=== PATIENT | female | born 1970 | race Two or more races ===

== ENCOUNTER 2018-04-05 11:52 | Observation (INO) | payer BC ==
[~2018-04-05 11:52] MED LIST: DEXAMETHASONE SOD PHOSPHATE INJ 4 MG/1 ML VIAL ONE; GLYCOPYRROLATE 1 MG/5 ML SYRINGE ONE; KETOROLAC TROMETHAMINE 60 MG/2 ML SDV ONE; LIDOCAINE 2% INJ-PF (20 MG/ML) 2 ML AMPUL ONE; METOCLOPRAMIDE HCL INJ/PF 10 MG/2 ML SDV ONE; NEOSTIGMINE METHYLSULFATE 10 MG/10 ML VIAL ONE; ONDANSETRON HCL INJ/PF 4 MG/2 ML SDV ONE
[2018-04-05] MEDS ORDERED: NORMAL SALINE 1000 ML 1,000 ML IV ONE (12:53)
--- NOTE | 2018-04-05 12:54 | ER Document Report ---
ED Medical Screen (RME) - General Chief Complaint: Abdominal Pain Stated Complaint: ABDOMINAL PAIN Time Seen by Provider: 04/05/18 12:45 Notes: Patient is a 47-year-old female that presents to the emergency department for chief complaint of right-sided abdominal pain. Patient reports the pain started yesterday, and worse through today and constant, some nausea but no vomiting. She is also urinary frequency. She was seen at the primary office today, and advised to come to the ED to have her evaluation for possible appendicitis, she is status post cholecystectomy. ROS: Other than noted above, the 12 point review of systems was reviewed with the patient and were negative, all pertinent findings are included in the HPI. PHYSICAL EXAMINATION: Vital signs reviewed. GENERAL: Well-appearing, well-nourished and in no acute distress. HEAD: Atraumatic, normocephalic. EYES: Pupils equal round extraocular movements intact, conjunctiva are normal. ENT: Nares patent NECK: Normal range of motion CV: Heart regular rate and rhythm LUNGS: No respiratory distress Abdomen: Right upper and right lower quadrant tenderness with palpation. Musculoskeletal: Normal range of motion NEUROLOGICAL: Normal speech PSYCH: Normal mood, normal affect. MDM: Patient seen and examined for rapid initial assessment. Vital signs reviewed. A comprehensive ED assessment and evaluation of the patient, analysis of test results and completion of the medical decision making process will be conducted by additional ED providers. *Note is created using voice recognition software and may contain spelling, syntax or grammatical errors. TRAVEL OUTSIDE OF THE [place] IN LAST 30 DAYS: No - Related Data Allergies/Adverse Reactions: oxycodone Allergy (Verified 04/05/18 11:54) Past Medical History Renal/ Medical History: Denies: Hx Peritoneal Dialysis Past Surgical History: Reports: Hx Cholecystectomy Physical Exam - Vital signs Vitals: Temp Pulse Resp BP Pulse Ox 98.9 F 60 20 125/80 99 04/05/18 12:05 04/05/18 12:05 04/05/18 12:05 04/05/18 12:05 04/05/18 12:05 Course - Vital Signs Vital signs: Temp Pulse Resp BP Pulse Ox 98.9 F 60 20 125/80 99 04/05/18 12:05 04/05/18 12:05 04/05/18 12:05 04/05/18 12:05 04/05/18 12:05
[2018-04-05 13:52] LABS: APPEARANCE,URINE SLIGHTLY-CLOUDY; BILIRUBIN,URINE NEGATIVE (NEGATIVE); COLOR,URINE YELLOW; GLUCOSE, URINE NEGATIVE (NEGATIVE); KETONES,URINE NEGATIVE (NEGATIVE); LEUKOCYTE ESTERASE,URINE NEGATIVE (NEGATIVE); NITRITE,URINE NEGATIVE (NEGATIVE); PROTEIN,URINE NEGATIVE (NEGATIVE); URINE SPECIFIC GRAVITY 1.019; UROBILINOGEN,URINE NEGATIVE mg/dL (<2.0)
[2018-04-05 13:56] LABS: ABSOLUTE EOSINOPHILS # (AUTO) 0.1 10^3/uL (0.0-0.6); ABSOLUTE MONOCYTES (AUTO) 0.4 10^3/uL (0.1-1.4); ABSOLUTE NEUT (AUTO) 4.3 10^3/uL (1.7-8.2); BASOPHILS % (AUTO) 0.4 % (0-2); EOSINOPHILS % (AUTO) 2.3 % (0-6); HEMATOCRIT 40.4 % (36.0-47.0); HEMOGLOBIN 13.6 g/dL (12.0-15.5); LYMPHOCYTES % (AUTO) 17.5 % (13-45); MEAN CORPUSCULAR HEMOGLOBIN 30.2 pg (27.0-33.4); MEAN CORPUSCULAR HGB CONC 33.8 g/dL (32.0-36.0); MEAN CORPUSCULAR VOLUME 90 fl (80-97); MONOCYTES % (AUTO) 7.1 % (3-13); PLATELET COUNT 236 10^3/uL (150-450); RED BLOOD COUNT 4.52 10^6/uL (3.72-5.28); SEGMENTED NEUTROPHILS % (AUTO) 72.7 % (42-78); TOTAL CELLS COUNTED % (AUTO) 100 %; WHITE BLOOD COUNT 5.9 10^3/uL (4.0-10.5)
[2018-04-05 14:04] LABS: ALANINE AMINOTRANSFERASE 15 U/L (9-52); ALKALINE PHOSPHATASE 75 U/L (38-126); ANION GAP 7 (5-19); ASPARTATE AMINO TRANSFERASE 22 U/L (14-36); BILIRUBIN,DIRECT 0.2 mg/dL (0.0-0.4); BILIRUBIN,TOTAL 0.9 mg/dL (0.2-1.3); BLOOD UREA NITROGEN 13 mg/dL (7-20); CALCIUM 9.2 mg/dL (8.4-10.2); CARBON DIOXIDE 28 mmol/L (22-30); CHLORIDE 105 mmol/L (98-107); GLUCOSE 83 mg/dL (75-110); LIPASE 81.7 U/L (23-300); POTASSIUM 4.6 mmol/L (3.6-5.0); SODIUM 139.8 mmol/L (137-145)
--- NOTE | 2018-04-05 14:50 | RADIOLOGY REPORT (SQ) ---
EXAM DESCRIPTION: CT ABD/PELVIS WITH IV ONLY COMPLETED DATE/TIME: 04/05/2018 2:38 pm REASON FOR STUDY: rlq pain COMPARISON: None. TECHNIQUE: CT scan of the abdomen and pelvis performed using helical scanning technique with dynamic intravenous contrast injection. No oral contrast. Images reviewed with lung, soft tissue, and bone windows. Reconstructed coronal and sagittal MPR images reviewed. Delayed images for evaluation of the urinary system also acquired. All images stored on PACS. All CT scanners at this facility use dose modulation, iterative reconstruction, and/or weight based d osing when appropriate to reduce radiation dose to as low as reasonably achievable (ALARA). [facility]: Dose Right [facility]: CareDose [facility]: Dose Right [facility]: Teradose 4D [facility]: Juxinli CONTRAST TYPE AND DOSE: contrast/concentration: Isovue 350.00 mg/ml; Total Contrast Delivered: 100.0 ml; Total Saline Delivered: 72.0 ml RENAL FUNCTION: None required. The patient is less than 50 years old. RADIATION DOSE: CT Rad equipment meets quality standard of care and radiation dose reduction techniq ues were employed. CTDIvol: 19.7 - 20.8 mGy. DLP: 2130 mGy-cm.. LIMITATIONS: None. FINDINGS: LOWER CHEST: Calcified granuloma right lower lobe. No acute or suspicious basilar pulmona ry abnormality. LIVER: Mildly fatty. SPLEEN: Normal size. No focal lesions. PANCREAS: No masses. No significant calcifications. No adjacent inflammation or peripancreatic fluid collections. Pancreatic duct not dilated. GALLBLADDER: Surgically absent. ADRENAL GLANDS: No significant masses or asymmetry. RIGHT KIDNEY AND URETER: No solid masses. No significant calcification. No hydronephrosis or hydroure ter. LEFT KIDNEY AND URETER: No solid masses. No significant calcification. No hydronephrosis or hydrouret er. AORTA AND VESSELS: No aneurysm. No dissection. Renal arteries, SMA, celiac without stenosis. RETROPERITONEUM: No retroperitoneal adenopathy, hemorrhage or masses. BOWEL AND PERITONEAL CAVITY: Small hiatal hernia. Previous gastric sleeve surgery. APPENDIX: The appendix is minimally conspicuous. Tip projects adjacent to the right ovary. There is minimal fat stranding regionally. This may reflect very early appendicitis without suggestion of pe riappendiceal abscess. PELVIS: IUD in the uterus. This IUD looks low lying, possibly out of position. ABDOMINAL WALL: No masses. No hernias. BONES: No significant or acute findings. OTHER: No other significant finding. IMPRESSION: 1. Findings suspicious for very early uncomplicated appendicitis. 2. Malpositioned IUD suggested. TECHNICAL DOCUMENTATION: JOB ID: [id number] Quality ID # [id number]: Final reports with documentation of one or more dose reduction techniques (e.g., Au tomated exposure control, adjustment of the mA and/or kV according to patient size, use of iterative reconstruction technique) 2010 [employer]- All Rights Reserved Reading location - IP/workstation name: [email or web address]
--- NOTE | 2018-04-05 16:15 | ER Document Report ---
ED GI/ - General Chief Complaint: Abdominal Pain Stated Complaint: ABDOMINAL PAIN Time Seen by Provider: 04/05/18 12:45 Mode of Arrival: Ambulatory Information source: Patient Notes: Patient is a 47-year-old female who presents to the emergency department with chief complaint of abdominal pain. She reports that her pain started yesterday as generalized pain with nausea. She now has pain to the right lower quadrant. She reports lack of appetite today. She states the pain is worse with any movement. She denies any fever, vomiting or diarrhea. She reports past medical history of cholecystectomy and as well as gastric sleeve. TRAVEL OUTSIDE OF THE [place] IN LAST 30 DAYS: No - Related Data Allergies/Adverse Reactions: oxycodone Allergy (Verified 04/05/18 11:54) Past Medical History - Social History Smoking Status: Never Smoker Frequency of alcohol use: None Drug Abuse: None Lives with: Family Family History: Reviewed & Not Pertinent Patient has suicidal ideation: No Patient has homicidal ideation: No - Past Medical History Cardiac Medical History: Reports: None Renal/ Medical History: Denies: Hx Peritoneal Dialysis Past Surgical History: Reports: Hx Abdominal Surgery - Gastric sleeve, Hx Cholec ystectomy Physical Exam - Vital signs Vitals: Temp Pulse Resp BP Pulse Ox 98.9 F 60 20 125/80 99 04/05/18 12:05 04/05/18 12:05 04/05/18 12:05 04/05/18 12:05 04/05/18 12:05 - Notes Notes: PHYSICAL EXAMINATION: GENERAL: Well-appearing, well-nourished and in no acute distress. HEAD: Atraumatic, normocephalic. EYES: Pupils equal round and reactive to light, extraocular movements intact, conjunctiva are normal. ENT: Nares patent, oropharynx clear without exudates. Moist mucous membranes. NECK: Normal range of motion, supple without lymphadenopathy LUNGS: Breath sounds clear to auscultation bilaterally and equal. No wheezes rales or rhonchi. HEART: Regular rate and rhythm without murmurs ABDOMEN: Soft,nondistended abdomen. Point tenderness to the right lower quadrant. No guarding, no rebound. No masses appreciated. Female : No CVA tenderness. Musculoskeletal: Normal range of motion, no pitting or edema. No cyanosis. NEUROLOGICAL: Cranial nerves grossly intact. Normal speech. Normal sensory, motor exams PSYCH: Normal mood, normal affect. SKIN: Warm, Dry, normal turgor, no rashes or lesions noted. Course - Re-evaluation Re-evalutation: CBC, CMP, lipase and urinalysis are unremarkable. CT the abdomen pelvis with IV contrast only shows possible early appendicitis. Patient's vital signs are stable. Patient reports that her pain is tolerable at a 2/5 when she is not moving, she declines the offer of pain medication. Will consult on-call surgery to come and evaluate her. Patient reports last meal was last night, she states that she yes I was can ask you about it 04/05/18 16:[address] Higuera, general surgery on-call who agrees to come and evaluate the patient. 04/05/18 17:40 Dr. Higuera at bedside evaluating the patient. 04/05/18 17:49 Dr. Higuera accepting the patient for admission, will take to the OR in approximately 3 hours due to patient's n.p.o. status. - Vital Signs Vital signs: Temp Pulse Resp BP Pulse Ox 99.5 F 60 16 140/91 H 99 04/05/18 16:31 04/05/18 16:31 04/05/18 16:31 04/05/18 16:31 04/05/18 16:31 - Laboratory Result Diagrams: 04/05/18 13:15 04/05/18 13:15 Discharge - Discharge Clinical Impression: Abdominal pain Qualifiers: Abdominal location: right lower quadrant Qualified Code(s): R10.31 - Right lower quadrant pain Appendicitis Qualifiers: Appendicitis type: acute appendicitis Acute appendicitis type: unspecified acute appendicitis type Qualified Code(s): K35.80 - Unspecified acute appendicitis Condition: Good Disposition: ADMITTED INPATIENT Admitting Provider: Surgicalist Pravin Higuera Unit Admitted: Medical Floor
[2018-04-05] MEDS ORDERED: NORMAL SALINE 1000 ML 1,000 ML IV PRN (18:16)
--- NOTE | 2018-04-05 18:16 | PDOC H&P ---
History of Present Illness Admission Date/PCP: RODRI CARRILLO MD Patient complains of: abdominal pains History of Present Illness: SUAD MCCONNELL is a 47 year old female who is post sleeve gastrectomy and chplecystectomy started c/o lower abdominal pains about 12 noon yesterday. Has associated nausea but no vomiting. No fever/chills. No diarrhea/constipation. She has regular menses. Past Surgical History Past Surgical History: Reports: Cholecystectomy, Other - sleeve gastrectomy Social History Smoking Status: Never Smoker Frequency of Alcohol Use: Social Hx Recreational Drug Use: No Family History Parental Family History Reviewed: Yes Children Family History Reviewed: No Sibling(s) Family History Reviewed.: No Medication/Allergy Allergies/Adverse Reactions: oxycodone Allergy (Verified 04/05/18 11:54) Review of Systems Constitutional: PRESENT: as per HPI Eyes: PRESENT: other - no visual/hearing changes Cardiovascular: PRESENT: other - no chest pains/cough Gastrointestinal: PRESENT: abdominal pain, nausea Genitourinary: PRESENT: other - no dysuria Neurological: PRESENT: other - no seizures Physical Exam Vital Signs: Temp Pulse Resp BP Pulse Ox 99.5 F 60 16 140/91 H 99 04/05/18 16:31 04/05/18 16:31 04/05/18 16:31 04/05/18 16:31 04/05/18 16:31 Intake & Output 04/04/18 04/05/18 04/06/18 06:59 06:59 06:59 Intake Total 1000 Balance 1000 Weight 104.2 kg General appearance: PRESENT: mild distress Head exam: PRESENT: atraumatic Eye exam: PRESENT: conjunctiva pink Mouth exam: PRESENT: dry mucosa Neck exam: PRESENT: full ROM Respiratory exam: PRESENT: clear to auscultation eusebio Cardiovascular exam: PRESENT: RRR Pulses: PRESENT: normal radial pulses Vascular exam: PRESENT: normal capillary refill GI/Abdominal exam: PRESENT: soft, tenderness - RLQ with Rovsing's sign Rectal exam: PRESENT: deferred Extremities exam: PRESENT: full ROM Musculoskeletal exam: PRESENT: ambulatory Neurological exam: PRESENT: alert, oriented to person, oriented to place, oriented to time, oriented to situation Psychiatric exam: PRESENT: appropriate affect Skin exam: PRESENT: normal color, warm Results Laboratory Results: 04/05/18 13:15 04/05/18 13:15 04/05/18 04/05/18 04/05/18 13:15 13:15 13:15 WBC 5.9 RBC 4.52 Hgb 13.6 Hct 40.4 MCV 90 MCH 30.2 MCHC 33.8 RDW 14.0 Plt Count 236 Seg Neutrophils % 72.7 Lymphocytes % 17.5 Monocytes % 7.1 Eosinophils % 2.3 Basophils % 0.4 Absolute Neutrophils 4.3 Absolute Lymphocytes 1.0 Absolute Monocytes 0.4 Absolute Eosinophils 0.1 Absolute Basophils 0.0 Sodium 139.8 Potassium 4.6 Chloride 105 Carbon Dioxide 28 Anion Gap 7 BUN 13 Creatinine 0.69 Est GFR ( Amer) > 60 Est GFR (Non-Af Amer) > 60 Glucose 83 Calcium 9.2 Total Bilirubin 0.9 AST 22 ALT 15 Alkaline Phosphatase 75 Total Protein 7.0 Albumin 4.0 Lipase 81.7 Urine Color YELLOW Urine Appearance SLIGHTLY-CLOUDY Urine pH 5.0 Ur Specific Carbon 1.019 Urine Protein NEGATIVE Urine Glucose (UA) NEGATIVE Urine Ketones NEGATIVE Urine Blood NEGATIVE Urine Nitrite NEGATIVE Ur Leukocyte Esterase NEGATIVE Urine WBC (Auto) 3 Urine RBC (Auto) 2 Impressions: Abdomen/Pelvis CT 04/05/18 12:53 IMPRESSION: 1. Findings suspicious for very early uncomplicated appendicitis. 2. Malpositioned IUD suggested. Assessment & Plan - Diagnosis (1) Abdominal pain Qualifiers: Abdominal location: right lower quadrant Qualified Code(s): R10.31 - Right lower quadrant pain Is this a current diagnosis for this admission?: Yes (2) Appendicitis Qualifiers: Appendicitis type: acute appendicitis Acute appendicitis type: unspecified acute appendicitis type Qualified Code(s): K35.80 - Unspecified acute appendicitis Is this a current diagnosis for this admission?: Yes - Time Time Spent: 30 to 50 Minutes - Inpatient Certification Medical Necessity: Need for Pain Control, Need for IV Antibiotics, Need for Surgery - Plan Summary Plan Summary: Hydrate Start IV antibiotics Keep NPO For lap appendectomy
[2018-04-05] MEDS ORDERED: HYDROMORPHONE HCL INJ/PF 2 MG/ML AMPULE IV PRN ×2 (18:22→20:55)
[2018-04-05] MEDS ORDERED: PIPERACILLIN/TAZOBACTAM 3.375 GM VIAL IV SCH (18:30)
[2018-04-05] MEDS ORDERED: FENTANYL CITRATE INJ/PF 250 MCG/5 ML AMPULE ONE (18:41)
[2018-04-05] MEDS ORDERED: PROPOFOL INJ 200 MG/20 ML VIAL IV ONE (18:42)
[2018-04-05] MEDS ORDERED: ACETAMINOPHEN 1,000 MG/100 ML RTUPB IV ONE (18:42)
[2018-04-05] MEDS ORDERED: MIDAZOLAM 2 MG/2 ML INJ ONE (18:42)
[2018-04-05] MEDS ORDERED: EPHEDRINE SULFATE INJ 50 MG/1 ML AMPULE ONE (18:42)
[2018-04-05] MEDS ORDERED: DEXMEDETOMIDINE INJ 80 MCG/20 ML VIAL IV ONE (18:42)
[2018-04-05] MEDS ORDERED: BUPIVACAINE HCL 0.25 % INJ/PF (2.5 MG/1 ML) 30 ML VIAL ONE (18:54)
[2018-04-05] MEDS ORDERED: PROMETHAZINE HCL INJ 25 MG/1 ML VIAL IV PRN ×2 (18:55)
[2018-04-05] MEDS ORDERED: ONDANSETRON HCL INJ/PF 4 MG/2 ML SDV IV PRN ×2 (18:55→20:55)
[2018-04-05] MEDS ORDERED: MEPERIDINE HCL/PF INJ 25 MG/1 ML DISP.SYRIN IV PRN (18:55)
[2018-04-05] MEDS ORDERED: DIPHENHYDRAMINE HCL 50 MG/ML VIAL IV PRN (18:55)
[2018-04-05] MEDS ORDERED: MORPHINE SULFATE 10 MG/ML INJ IV PRN (18:55)
[2018-04-05] MEDS ORDERED: FENTANYL CITRATE INJ/PF 100 MCG/2 ML AMPUL IV PRN ×3 (18:55)
--- NOTE | 2018-04-05 19:17 | RADIOLOGY REPORT (SQ) ---
EXAM DESCRIPTION: U/S NON OB PEL TV W/DOPPLER COMPLETED DATE/TIME: 04/05/2018 6:36 pm REASON FOR STUDY: RLQ pain COMPARISON: None. TECHNIQUE: Dynamic and static grayscale images acquired of the pelvis via transvaginal approach and recorded on PACS. Additional selected color Doppler and spectral images recorded. LIMITATIONS: None. FINDINGS: UTERUS: Contour normal. No mass. ENDOMETRIAL STRIPE: Low lying IUD. 6 mm endometrial stripe. CERVIX: Nabothian cysts are noted. RIGHT OVARY AND DOPPLER: Normal size. No worrisome masses. Normal arterial vascular flow without evid ence for torsion. LEFT OVARY AND DOPPLER: Not seen. FREE FLUID: None noted. OTHER: No other significant finding. MEASUREMENTS: UTERUS: 9.5 x 5.4 x 5.7 cm. ENDOMETRIAL STRIPE: As above. RIGHT OVARY: 2.7 x 1.8 x 2.3 cm. LEFT OVARY: Not seen. IMPRESSION: 1. No right ovarian lesions are identified. 2. Low lying IUD. TECHNICAL DOCUMENTATION: JOB ID: [id number] [employer]- All Rights Reserved Rev-08/23 Reading location - IP/workstation name: [email or web address]
[2018-04-05] MEDS ORDERED: PIPERACILLIN/TAZOBACTAM 3.375 GM VIAL IV ONE ×2 (19:28→21:38)
[2018-04-05] MEDS ORDERED: KETOROLAC TROMETHAMINE INJ/PF 30 MG/1 ML SDV IV PRN (20:56)
[2018-04-05] MEDS ORDERED: PIPERACILLIN/TAZOBACTAM 3.375 GM VIAL IV PRN (20:57)
--- NOTE | 2018-04-05 21:33 | OPERATIVE REPORT E ---
Operative Report NAME: SUAD MCCONNELL : 1970 AGE: 47Y DATE OF SURGERY: 04/05/2018 ROOM: ED09 PREOPERATIVE DIAGNOSIS: ACUTE APPENDICITIS. POSTOPERATIVE DIAGNOSIS: ACUTE APPENDICITIS. OPERATION: LAPAROSCOPIC APPENDECTOMY. SURGEON: SHANDA BARNES M.D. ANESTHESIA: General. INDICATION: This is a 47-year-old female complaining of abdominal pain around noontime yesterday. There was associated nausea. She went to the ED, where a CT scan of the abdomen showed early acute appendicitis. PROCEDURE: After adequate general anesthesia, the patient was placed in the supine position. The abdomen was prepped and draped in the usual sterile fashion. Appropriate timeout was then called. Next, an infraumbilical incision was made and thick subcutaneous fat was then dissected towards the fascia. The fascia was subsequently grasped with 2 Rancho clamps and divided between the 2 Rancho clamps. Stay sutures using 0 Vicryl were placed on the Rancho clamps side. Rancho clamps were removed and sutures lifted up, and peritoneal layer punctured with hemostat. Finger palpation was then done through the fascial defect to the peritoneal area and no evidence of adhesions noted. There was just a thick fat layer from the fascia to the peritoneum. Next, a Salvador trocar was then inserted through the fascia to the abdominal cavity, and CO2 insufflated to a pressure of 15 mmHg. Camera was then inserted and 2 other trocars were placed, a 5 mm in the suprapubic area and a 12 mm in the left lower quadrant, under direct vision with a camera. Next, the appendix was then identified. The tip appears to be normal. However, the mid portion of the appendix was inflamed towards the base. The mesoappendix was then divided and cauterized with harmonic aretha while lifting up the appendix with a grasper. The base of the appendix was then identified and noted to be slightly inflamed. With the use of Endo-DARLINE 45 mm blue load, the base of the appendix close to the cecum was then divided with the stapler. The specimen was then placed in an Endobag and pulled out through the umbilical port. The appendiceal stump was noted to be free of any bleeding. It was then irrigated. A couple of clips were placed toward the lateral aspect of the aaron, just to make sure that the staple line was intact, though it was intact on further inspection. No evidence of any abnormality noted toward the area of the pelvis. All the trocars were then removed and CO2 allowed to come out through the trocar sites. The infraumbilical area was then closed with a [id number]-[id number] suture using 0 Vicryl, and the 2 stay sutures tied together for further closure. The subcu was then irrigated with saline solution. The fascia was injected with 0.5% Marcaine. About 10 mL were used. Also, some Marcaine was used to inject the dermis on all the incision sites. Next, all the skin incisions were then closed with running subcuticular 4-0 Vicryl undyed. Steri-Strips were placed over the operative sites. Needle, instrument, and sponge count are all correct. Estimated blood loss was about 5 mL. The patient was then brought to the recovery room in satisfactory condition. DICTATING PHYSICIAN: SHANDA BARNES M.D. [id number] PHY#: [id number] ID: [id number] JOB#: [id number] ACCT: [id number] cc:SHANDA BARNES M.D. > MTDD
[2018-04-05] MEDS: NORMAL SALINE 1000 ML 1,000 ML IV PRN (21:57)
[2018-04-05] MEDS: PIPERACILLIN SODIUM/TAZOBACTAM 3.375 GM in NORMAL SALINE 100 ML IV SCH (23:38)
[2018-04-06] MEDS: NORMAL SALINE 1000 ML 1,000 ML IV PRN (05:31)
[2018-04-06] MEDS: PIPERACILLIN SODIUM/TAZOBACTAM 3.375 GM in NORMAL SALINE 100 ML IV SCH (05:31)
[2018-04-06 10:40] VITALS: BP 140/91
--- NOTE | 2018-04-07 08:42 | DISCHARGE SUMMARY E ---
Discharge Summary NAME: SUAD MCCONNELL : 1970 AGE: 47Y ADMITTED: 04/05/2018 DISCHARGED: 04/06/2018 PROCEDURE DONE: Laparoscopic appendectomy 04/05/2018. SURGEON: Dr. Higuera FINAL DIAGNOSIS: Acute appendicitis. HOSPITAL COURSE: This is a 47-year-old female complaining of abdominal pains the day prior to admission. She did have a CT scan of the abdomen which showed early acute appendicitis. She was tender in the right lower quadrant when seen in the ED. She was taken to the OR and a laparoscopic appendectomy was performed for an acute appendicitis. Postoperatively, the patient did very well, tolerating a regular diet without any fever, and less pain. She was given a prescription for Toradol to take 10 mg p.o. q.6 hours as needed for pain. She was discharged improved on 04/06/2018. She was also given a note to go back to work in about 2 weeks, and she does lift some stuff at work. She will be followed up in the surgical clinic in 2 weeks. DICTATING PHYSICIAN: SHANDA HIGUERA M.D. [id number] PHY#: [id number] ID: [id number] JOB#: [id number] ACCT: [id number] cc:MD SHANDA JOHNSON M.D. >
== END 2018-04-06 11:20 | disposition home or self-care (01) ==
LOC: ER 11:52 → EH 18:10 → INTOOBSV 18:10 → 4N 21:23
PROVIDERS: ATTEND Surgery
PROC: 0DTJ4ZZ Resection of Appendix, Percutaneous Endoscopic Approach (ICD-10-PCS; 2018-04-05)
PROC: 3E02340 Introduction of Influenza Vaccine into Muscle, Percutaneous Approach (ICD-10-PCS; principal; 2018-04-06)
DX: K35.80 Unspecified acute appendicitis (principal); R35.0 Frequency of micturition; Z90.49 Acquired absence of other specified parts of digestive tract; Z90.3 Acquired absence of stomach [part of]; Z23 Encounter for immunization
CPT/HCPCS: 99285; 96360; 36415; 83690; 85025; 81025; 80053; 81001; 88304 ×2; 76830; 93976; 74177; 90686; 44970; G0378 ×3; G0008; J2250; J1100; J1885 ×2; J3010; J2765; J1170; J2405; J7030 ×2; J2704; J2543 ×2; J0131; J3490 ×3; 840; 90471